=== PATIENT | female | born 1965 | race Two or more races ===

== ENCOUNTER 2017-12-19 17:19 | Inpatient (IN) | payer OTHER ==
[~2017-12-19] VITALS: Ht 157.5 cm; Wt 68.0 kg
[2017-12-21] MEDS ORDERED: METFORMIN HCL500 MG PO (12:13)
[2017-12-21] MEDS ORDERED: WELLBUTRIN XL300 MG PO (12:13)
[2017-12-21] MEDS ORDERED: CLONAZEPAM1 MG PO (12:13)
[2017-12-21] MEDS ORDERED: NEURONTIN300 MG PO (12:14)
[2017-12-21] MEDS ORDERED: RESTORIL30 M1 PO (12:14)
[2017-12-21] MEDS ORDERED: SIMVASTATIN10 MG PO (12:15)
[2017-12-21] MEDS ORDERED: OLANZAPINE PO (12:15)
[2017-12-21] MEDS ORDERED: ZOCOR20 MG PO (12:15)
[2017-12-21] MEDS ORDERED: SYNTHROID88 MCG PO (12:15)
[2017-12-28] MEDS ORDERED: COLACE100 MG PO (14:51)
[2017-12-28] MEDS ORDERED: NEURONTIN800 MG PO (14:52)
[2017-12-28] MEDS ORDERED: AMOX-CLAV 875-1 EACH PO (14:53)
[2017-12-28] MEDS ORDERED: CLONAZEPAM1 MG PO (14:54)
[2017-12-28] MEDS ORDERED: PERCOCET 5-3251 EACH PO (14:54)
== END 2017-12-29 14:17 | disposition home or self-care (01) | DRG 460 ==
LOC: O/R 12-28 06:00 → PED 12-28 06:00 → RECOVERY 12-28 10:00 → SURG 12-28 10:00 → PED 12-28 15:51 → SURG 12-28 16:15 → PED 12-29 14:17
PROVIDERS: Orthopaedic Surgery Orthopaedic Surgery of the Spine
PROC: 0SG00AJ Fusion of Lumbar Vertebral Joint with Interbody Fusion Device, Posterior Approach, Anterior Column, Open Approach (ICD-10-PCS; 2017-12-28)
PROC: 0ST20ZZ Resection of Lumbar Vertebral Disc, Open Approach (ICD-10-PCS; 2017-12-28)
PROC: 07DS3ZZ Extraction of Vertebral Bone Marrow, Percutaneous Approach (ICD-10-PCS; 2017-12-28)
PROC: 0SG00A0 Fusion of Lumbar Vertebral Joint with Interbody Fusion Device, Anterior Approach, Anterior Column, Open Approach (ICD-10-PCS; principal; 2017-12-28 16:15)
DX: M47.26 Other spondylosis with radiculopathy, lumbar region (principal); M51.16 Intervertebral disc disorders with radiculopathy, lumbar region; M48.061 Spinal stenosis, lumbar region without neurogenic claudication; I10 Essential (primary) hypertension; E03.8 Other specified hypothyroidism; E11.9 Type 2 diabetes mellitus without complications